=== PATIENT | male | born 1970 | race Caucasian/White ===

== ENCOUNTER 2019-07-02 07:20 | Day surgery (SDC) | payer BC ==
[2019-06-29 11:19] VITALS: BMI 30.9
[2019-07-02 07:36] LABS: #Basophils 0.1 thou/uL (0.0-0.2); #Eosinphils 0.1 thou/uL (0.0-0.7); #Lymphocytes 2.1 thou/uL (1.20-3.40); #Monocytes 0.6 thou/uL (0.11-0.59); #Neutrophils 3.8 thou/uL (1.40-6.50); %Basophils 1.2 % (0.0-1.0); %Eosinophils 2.2 % (0.0-10.0); %Lymphocytes 31.2 % (21.0-51.0); %Monocytes 8.6 % (0.0-10.0); %Neutrophils 56.9 % (42.0-75.0); Hemoglobin 14.6 g/dL (14.0-18.0); Mean Corpuscular HGB CONC 34.4 g/dL (32.0-36.0); Mean Corpuscular Hemoglobin 33.6 pg (27.0-31.0); Mean Corpuscular Volume 97.8 fL (78.0-98.0); Mean Platelet Volume 6.9 fL (7.4-10.4); Platelet Count 147 thou/uL (130-400); RBC Distribution Width 12.4 % (11.5-14.5); Red Blood Cell (RBC) Count 4.35 mill/uL (4.70-6.10); White Blood Cell (WBC) Count 6.7 thou/uL (4.8-10.8)
[2019-07-02] MEDS ORDERED: Fentanyl 100 MCG/2 ML VIAL ONE (07:36)
[2019-07-02] MEDS ORDERED: Midazolam HCl 2 mg/2 ml Vial ONE (07:36)
[2019-07-02] MEDS ORDERED: Sodium Bicarbonate 2.5 MEQ/5 ML VIAL ONE (07:36)
[2019-07-02 07:58] LABS: INR-International Normal Ratio 1.6; PTT 35.6 SEC (22.9-36.1); Prothrombin Time 18.7 SEC (12.0-14.7)
[2019-07-02] MEDS ORDERED: Lidocaine 1% PF 5 ML VIAL ONE (08:26)
--- NOTE | 2019-07-02 09:26 | ULT ---
EXAM: US Hepatic Doppler PROVIDED CLINICAL HISTORY: Abnormal liver function tests COMPARISON: None FINDINGS: The liver is enlarged in craniocaudal dimensions measuring 18.9 cm. No focal hepatic lesion is identi fied. The spleen is at the upper limits of normal in size measuring 13 cm. The limited visualized portions of the pancreas, visualized portions of the IVC and gallbladder demonstrate a normal sonogra phic appearance. The common duct measures 0.5 cm in diameter which is within normal limits. The right kidney is incompletely assessed on this exam. Hepatic Doppler evaluation with spectral analysis and color flow evaluation demonstrates normal direc tional flow within the hepatic, portal, and splenic veins. Arterial Doppler evaluation is performed of the splenic and hepatic arteries which demonstrates an arterial waveform in these vessels. IMPRESSION: 1. Hepatomegaly with spleen at the upper limits of normal in size. 2. Normal directional flow is seen within the portal, splenic, and hepatic veins.
[2019-07-02 09:57] VITALS: BP 132/83; TEMP 98.2
--- NOTE | 2019-07-02 10:06 | ULT ---
ULTRASOUND GUIDED RANDOM LIVER BIOPSY: HISTORY: Abnormal liver function test. COMPARISON: None. FINDINGS: Successful random liver biopsy. A single 18-gauge core biopsy sample is obtained and placed directly in formalin. TECHNIQUE: Consent was obtained to perform a random liver biopsy. The left hepatic lobe was deemed appropriate. Skin was prepped and draped in sterile fashion. 1% lidocaine, buffered with sodium bicarbonate was used for local anesthesia. Ultrasound guidance, 18-gauge biopsy needle was advanced into the left hep atic lobe. A single 18-gauge core biopsy sample was obtained obtained and placed directly in formalin. There are no immediate or postprocedure complications. IMPRESSION: Successful random liver biopsy of the left hepatic lobe. Transcribed Date/Time: 07/02/2019 10:32 AM
== END 2019-07-02 11:30 | disposition home or self-care (01) ==
LOC: ULT 07:20 → EDSTATUS 08:00 → ULT 11:30
PROVIDERS: ATTEND Internal Medicine Gastroenterology
PROC: 0FB03ZX Excision of Liver, Percutaneous Approach, Diagnostic (ICD-10-PCS; principal; 2019-07-02)
DX: K75.81 Nonalcoholic steatohepatitis (NASH) (principal); K74.0 Hepatic fibrosis; I10 Essential (primary) hypertension; E78.00 Pure hypercholesterolemia, unspecified; Z88.0 Allergy status to penicillin; Z79.02 Long term (current) use of antithrombotics/antiplatelets; Z79.899 Other long term (current) drug therapy
CPT/HCPCS: 36415; 47000; 76705; 76942; 85025; 85610; 85730; 88307; 88313; J2001; J2250; J3010

== ENCOUNTER 2021-07-09 13:56 | Outpatient (CLI) | payer BC ==
[2021-07-09 15:33] LABS: #Basophils 0.1 10x3/uL (0.0-0.2); #Eosinphils 0.2 10x3/uL (0.0-0.5); #Monocytes 0.6 10x3/uL (0.0-1.1); %Basophils 2.3 % (0.0-2.0); %Lymphocytes 34.6 % (18.0-47.0); %Monocytes 9.9 % (0.0-10.0); Hemoglobin 13.2 g/dL (13.5-17.5); Mean Corpuscular HGB CONC 33.3 g/dL (32.0-36.0); Mean Corpuscular Hemoglobin 33.7 pg (27.0-33.0); Mean Platelet Volume 11.1 fl (7.4-10.4); Platelet Count 112 10x3/uL (150-450); RBC Distribution Width 13.1 % (11.5-14.5); Red Blood Cell (RBC) Count 3.92 10x6/uL (4.32-5.72)
[2021-07-09 16:02] LABS: Anion Gap 14 mmol/L (10-20); BUN (Urea Nitrogen) 7 mg/dL (8.4-25.7); Calc. Creatinine Clearance 0 mL/min (70-130); Calcium 8.7 mg/dL (7.8-10.44); Carbon Dioxide 25 mmol/L (22-29); Chloride 105 mmol/L (98-107); Glucose 77 mg/dL (70-105); Potassium 4.3 mmol/L (3.5-5.1); Sodium 140 mmol/L (136-145)
[2021-07-10 12:05] LABS: SARS-CoV-2 PCR by NAA Not Detected (NotDetected)
== END 2021-07-09 13:57 | disposition home or self-care (01) ==
LOC: LABBT 13:56
PROVIDERS: ATTEND Specialist
DX: Z01.818 Encounter for other preprocedural examination (principal); D17.1 Benign lipomatous neoplasm of skin and subcutaneous tissue of trunk; Z20.822 Contact with and (suspected) exposure to COVID-19
CPT/HCPCS: 80048; 85025; 93005; 93010; U0003; U0005

== ENCOUNTER 2021-07-14 10:11 | Day surgery (SDC) | payer BC ==
[2021-07-13 12:06] VITALS: BMI 34.2
[2021-07-14] MEDS ORDERED: Ketorolac Tromethamine 30 MG/ML VIAL ONE (10:21)
[2021-07-14] MEDS ORDERED: Levofloxacin 500 mg/D5W 100 ml Premix Bag ONE (10:22)
[2021-07-14] MEDS ORDERED: Acetaminophen 500 MG TAB ONE (10:23)
[2021-07-14] MEDS ORDERED: Bupivacaine 0.25% HCL 30 ML VIAL ONE (10:25)
[2021-07-14] MEDS ORDERED: Lidocaine 1% w/Epinephrine 1:100K 20 ML VIAL ONE (10:25)
[2021-07-14] MEDS ORDERED: Fentanyl 250 MCG/5 ML VIAL ONE (10:43)
[2021-07-14] MEDS ORDERED: Dexamethasone 20 MG/5 ML VIAL ONE (10:46)
[2021-07-14] MEDS ORDERED: Lidocaine 1% PF 5 ML VIAL ONE (10:46)
[2021-07-14] MEDS ORDERED: diphenhydrAMINE 50 MG/ML VIAL ONE (10:46)
[2021-07-14] MEDS ORDERED: Ondansetron PF 4 MG/2 ML Vial ONE (10:46)
[2021-07-14] MEDS ORDERED: PROPOFOL 200 MG/20 ML VIAL ONE (10:46)
[2021-07-14] MEDS ORDERED: Fentanyl 100 MCG/2 ML VIAL ONE (12:08)
== END 2021-07-14 13:10 | disposition home or self-care (01) ==
LOC: SDC 10:11
PROVIDERS: ATTEND Specialist
PROC: 0JBC0ZZ Excision of Pelvic Region Subcutaneous Tissue and Fascia, Open Approach (ICD-10-PCS; principal; 2021-07-14)
DX: D17.1 Benign lipomatous neoplasm of skin and subcutaneous tissue of trunk (principal); Z79.899 Other long term (current) drug therapy; Z88.0 Allergy status to penicillin
CPT/HCPCS: 88304; J1100; J1200; J1885; J1956; J2405; J2704; J3010; S0020

== ENCOUNTER 2022-04-21 08:29 | Outpatient (CLI) | payer BC | END 2022-04-21 08:30 | disposition home or self-care (01) | LOC: BICULT 08:29 | PROVIDERS: ATTEND Internal Medicine Gastroenterology | DX: R79.89 Other specified abnormal findings of blood chemistry (principal); K74.60 Unspecified cirrhosis of liver; K76.0 Fatty (change of) liver, not elsewhere classified; R16.1 Splenomegaly, not elsewhere classified | CPT/HCPCS: 76700 ==